=== PATIENT | female | born 1955 | race Caucasian/White ===

== ENCOUNTER 2018-07-02 08:02 | Emergency (ER) | payer OTHER, BC ==
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
== END 2018-07-02 09:16 | disposition home or self-care (01) ==
LOC: DL.ED 08:02
DX: Z04.1 Encounter for examination and observation following transport accident (principal); Z88.8 Allergy status to other drugs, medicaments and biological substances; Z79.899 Other long term (current) drug therapy; V89.2XXA Person injured in unspecified motor-vehicle accident, traffic, initial encounter
CPT/HCPCS: 99284

== ENCOUNTER 2020-08-26 10:49 | Emergency (ER) | payer BC ==
--- NOTE | 2020-08-26 12:02 | EDM.PDOC ---
ED HPI GENERAL MEDICAL PROBLEM - General Chief Complaint: Neuro Symptoms/Deficits Stated Complaint: DIZZY, LIGHTHEADED, WEAK Time Seen by Provider: 08/26/20 12:01 Source of Information: Reports: Patient, Old Records, RN, RN Notes Reviewed History Limitations: Reports: No Limitations - History of Present Illness INITIAL COMMENTS - FREE TEXT/NARRATIVE: Pt presents to ER by POV with c/o sudden onset of "room spin" dizziness this morning around 0800HRS. Admits to a brief "wave" of nausea, but none since then. Right after the "room spin" she began to have dizziness, and her head feeling foggy. The symptoms lasted less than an hour. Now in the ER she is feeling much better. Denies headache, visual changes, fever, stiff or painful neck. Pt states she has a left inner ear condition, and is scheduled for surgery on it in two weeks. Onset: Sudden Duration: Improving, Resolved Prior to Arrival Location: Reports: Generalized Severity: Moderate Improves with: Reports: None Worsens with: Reports: None Associated Symptoms: Reports: No Other Symptoms - Related Data Allergies Allergy/AdvReac Type Severity Reaction Status Date / Time adalimumab [From Humira] Allergy Rash Verified 08/26/20 11:00 Home Meds: Home Meds Alendronate Sodium 70 mg PO .MON 07/02/18 [History] Calcium Carbonate/Vitamin D3 [Calcium 600 + Vit D 200] 1 each PO BID 07/02/18 [History] Etanercept [Enbrel] 50 mg INJECT .Mon07/02/18 [History] FLUoxetine HCl [Fluoxetine HCl] 20 mg PO DAILY 07/02/18 [History] Folic Acid 1 mg PO DAILY 07/02/18 [History] Simvastatin 10 mg PO BEDTIME 07/02/18 [History] metHOTREXate sodium [Methotrexate] 15 mg PO .MON 07/02/18 [History] Cholecalciferol (Vitamin D3) [Vitamin D3] 1,000 unit PO DAILY 08/26/20 [History] Famotidine 40 mg PO DAILY 08/26/20 [History] Ferrous Sulfate [Iron] 325 mg PO DAILY 08/26/20 [History] Past Medical History HEENT History: Reports: Impaired Vision Cardiovascular History: Reports: High Cholesterol Respiratory History: Reports: None Genitourinary History: Reports: Other (See Below) Other Genitourinary History: left breast abscess, [employer]UER History: Reports: Musculoskeletal History: Reports: RA, Other (See Below) Other Musculoskeletal History: left leg bakers cyst Neurological History: Reports: None Psychiatric History: Reports: Depression Endocrine/Metabolic History: Reports: None Hematologic History: Reports: None Immunologic History: Reports: None Oncologic (Cancer) History: Reports: None Dermatologic History: Reports: None - Infectious Disease History Infectious Disease History: Reports: None - Past Surgical History Head Surgeries/Procedures: Reports: None GI Surgical History: Reports: Colonoscopy Female Surgical History: Reports: Breast Biopsy, Section, Hysterectomy Musculoskeletal Surgical History: Reports: Carpal Tunnel Social & Family History - Family History Family Medical History: No Pertinent Family History - Tobacco Use Tobacco Use Status *Q: Current Every Day Tobacco User Years of Tobacco use: 50 Packs/Tins Daily: 0.5 - Caffeine Use Caffeine Use: Reports: Coffee - Alcohol Use Days Per Week of Alcohol Use: 7 Number of Drinks Per Day: 3 Total Drinks Per Week: 21 - Recreational Drug Use Recreational Drug Use: No - Living Situation & Occupation Occupation: Employed ED ROS GENERAL - Review of Systems Review Of Systems: Comprehensive ROS is negative, except as noted in HPI. ED EXAM, NEURO - Physical Exam Exam: See Below Exam Limited By: No Limitations General Appearance: Alert, WD/WN, No Apparent Distress Eye Exam: Bilateral Eye: EOMI, Nystagmus (Left lateral gaze), PERRL Ears: Normal External Exam, Normal Canal, Hearing Grossly Normal, Normal TMs (no erythema, B/L TMs tented by ossicles) Nose: Normal Inspection, Normal Mucosa, No Blood Throat/Mouth: Normal Inspection, Normal Lips, Normal Teeth, Normal Gums, Normal Oropharynx, Normal Voice, No Airway Compromise Head Exam: Atraumatic, Normocephalic Neck: Normal Inspection, Supple, Non-Tender, Full Range of Motion Respiratory/Chest: No Respiratory Distress, Lungs Clear, Normal Breath Sounds, No Accessory Muscle Use, Chest Non-Tender Cardiovascular: Normal Peripheral Pulses, Regular Rate, Rhythm, No Edema, No Gallop, No JVD, No Murmur, No Rub GI/Abdominal: Normal Bowel Sounds, Soft, Non-Tender Neurological: Alert, Normal Mood/Affect, CN II-XII Intact, Normal Gait, No Motor/Sensory Deficits, Oriented x 3, Other (No reproducible vertigo) Back Exam: Normal Inspection Extremities: Normal Inspection, Normal Range of Motion, Non-Tender, No Pedal Edema, Normal Capillary Refill Psychiatric: Normal Affect, Normal Mood Skin Exam: Warm, Dry, Intact, Normal Color, No Rash #1 Interpretation EKG Date: 08/26/20 Time: 12:39 Rhythm: Other (SR) Rate (Beats/Min): 59 [place]: Normal P-Wave: Present QRS: Other (Abnormal R-wave progression, early transition) ST-T: Normal QT: Normal Comparison: NA - No Prior EKG Course - Vital Signs Last Recorded V/S: Last Vital Signs Temp 97.4 F 08/26/20 11:00 Pulse 70 08/26/20 11:00 Resp 16 08/26/20 11:00 BP 142/60 H 08/26/20 11:00 Pulse Ox 100 08/26/20 11:00 Orthostatic Blood Pressure [ 120/67 Standing] Orthostatic Blood Pressure [ 144/58 Sitting] Orthostatic Blood Pressure [ 142/60 Supine] - Orders/Labs/Meds Orders: Active Orders 24 hr Category Date Time Status EKG Documentation Completion [RC] URGENT Care 08/26/20 11:06 Active Orthostatic Vital Signs [RC] ASDIRECTED Care 08/26/20 11:08 Active Labs: Laboratory Tests 08/26/20 08/26/20 08/26/20 Range/Units 11:41 11:54 11:54 WBC 6.7 (5.0-10.0) 10^3/uL RBC 3.78 L (4.2-5.4) 10^6/uL Hgb 12.8 (12.0-16.0) g/dL Hct 37.4 (37.0-47.0) % MCV 98.9 (80-100) fL MCH 33.9 (27.0-34.0) pg MCHC 34.2 (33.0-35.0) g/dL Plt Count 288 (150-450) 10^3/uL Neut % (Auto) 45.8 (42.2-75.2) % Lymph % (Auto) 44.1 (20.5-50.1) % [place] % (Auto) 8.5 H (2-8) % Eos % (Auto) 1.2 (1.0-3.0) % Baso % (Auto) 0.4 (0.0-1.0) % Sodium 139 (136-145) mmol/L Potassium 4.3 (3.5-5.1) mmol/L Chloride 103 (98-107) mmol/L Carbon Dioxide 28 (21-32) mmol/L Anion Gap 12.3 (7-13) mEq/L BUN 11 (7-18) mg/dL Creatinine 0.73 (0.55-1.02) mg/dL Est Cr Clr Drug Dosing 75.71 mL/min Estimated GFR (MDRD) > 60 BUN/Creatinine Ratio 15.1 (No establ ref range) Glucose 81 (74-99) mg/dL Calcium 8.5 (8.5-10.1) mg/dL Total Bilirubin 0.5 (0.2-1.0) mg/dL AST 20 (15-37) U/L ALT 29 (14-59) U/L Alkaline Phosphatase 50 (46-116) U/L Troponin I < 0.017 (0.000-0.056) ng/mL Total Protein 7.0 (6.4-8.2) g/dL Albumin 3.4 (3.4-5.0) g/dL Globulin 3.6 Albumin/Globulin Ratio 0.9 Urine Color Yellow (YELLOW) Urine Appearance Clear (CLEAR) Urine pH 7.0 (5.0-9.0) Ur Specific Ages [place] 1.020 (1.005-1.030) Urine Protein Negative (NEGATIVE) Urine Glucose (UA) Negative (NEGATIVE) Urine Ketones Negative (NEGATIVE) Urine Occult Blood Negative (NEGATIVE) Urine Nitrite Negative (NEGATIVE) Urine Bilirubin Negative (NEGATIVE) Urine Urobilinogen 0.2 (0.2-1.0) mg/dL Ur Leukocyte Esterase Negative (NEGATIVE) Departure - Departure Time of Disposition: 13:18 Disposition: Home, Self-Care 01 Condition: Good Clinical Impression: Vertigo - Discharge Information *PRESCRIPTION DRUG MONITORING PROGRAM REVIEWED*: Not Applicable *COPY OF PRESCRIPTION DRUG MONITORING REPORT IN PATIENT [place]: Not Applicable Instructions: Vertigo Forms: ED Department Discharge Additional Instructions: Rx: Meclizine 25mg *Do not drive while taking this medication. Follow up in clinic if dizziness persists or becomes recurrent. Sepsis Event Note (ED) - Evaluation Sepsis Screening Result: No Definite Risk - Focused Exam Vital Signs: Vital Signs Temp Pulse Resp BP Pulse Ox 08/26/20 11:00 97.4 F 70 16 142/60 H 100 - My Orders Last 24 Hours: My Active Orders 08/26/20 11:06 EKG Documentation Completion [RC] URGENT 08/26/20 11:08 Orthostatic Vital Signs [RC] ASDIRECTED - Assessment/Plan Last 24 Hours: My Active Orders 08/26/20 11:06 EKG Documentation Completion [RC] URGENT 08/26/20 11:08 Orthostatic Vital Signs [RC] ASDIRECTED
[2020-08-26 12:52] LABS: ANION GAP 12.3 mEq/L (7-13); CHLORIDE,CL 103 mmol/L (98-107); SODIUM,NA 139 mmol/L (136-145)
== END 2020-08-26 13:32 | disposition home or self-care (01) ==
LOC: DL.ED 10:49
DX: R42 Dizziness and giddiness (principal); E78.00 Pure hypercholesterolemia, unspecified; Z79.899 Other long term (current) drug therapy; Z88.8 Allergy status to other drugs, medicaments and biological substances; Z72.0 Tobacco use
CPT/HCPCS: 36415; 80053; 81003; 84484; 85025; 93005; 93010; 99283; 99284-25